=== PATIENT | female | born 1975 | race Caucasian/White ===

== ENCOUNTER → 2019-12-08 | Outpatient (CLI) | payer OTHER ==
--- NOTE | 2019-12-08 08:46 | US ---
EXAMINATION TYPE: US abdomen complete DATE OF EXAM: 12/08/2019 COMPARISON: NONE CLINICAL HISTORY: R10.9 abdominal pain. EXAM MEASUREMENTS: Liver Length: 17.5 cm Gallbladder Wall: Surgically absent CBD: 0.6 cm Spleen: 7.1 cm Right Kidney: 11.3 x 4.4 x 4.9 cm Left Kidney: 11.4 x 6.0 x 5.5 cm Pancreas: Obscured by bowel gas Liver: Coarse, heterogeneous echotexture. Measuring upper limits of normal Gallbladder: Surgically absent Evidence for sonographic Morley's sign: No CBD: distal portion obscured by bowel gas Spleen: wnl Right Kidney: No hydronephrosis or masses seen Left Kidney: No hydronephrosis or masses seen Upper IVC: wnl Abd Aorta: Atherosclerotic changes visualized, visualized portions show no AAA The liver is heterogeneous. The intrahepatic portion of the IVC and proximal abdominal aorta are wit hin normal limits. Common bile duct is unremarkable. The visualized portions of the pancreas are h omogenous. The spleen is unremarkable. Kidneys are symmetric and free of hydronephrosis. No renal lesions are seen. IMPRESSION: Mild fatty liver. Otherwise unremarkable study.
== END | disposition home or self-care (01) ==
LOC: RADUSMAIN 07:50
PROVIDERS: ATTEND Family Medicine
DX: K76.0 Fatty (change of) liver, not elsewhere classified (principal)
CPT/HCPCS: 76700